=== PATIENT | female | born 2000 | race Caucasian/White ===

== ENCOUNTER 2021-02-02 01:00 | Emergency (ER) | payer BC, OTHER ==
[~2021-02-02] VITALS: Ht 168.9 cm; Wt 66.7 kg
[2021-02-02] MEDS ORDERED: METOCLOPRAMIDE HCL 10 MG/2 ML VIAL. IVP ONE (01:15)
[2021-02-02] MEDS ORDERED: IV NORMAL SALINE 1,000ML 1,000 ML IV ONE (01:15)
[2021-02-02 01:31] LABS: BASO # 0.1 x10^3/uL (0.0-0.2); BASO % 1 % (0-3); EOS # 0.2 x10^3/uL (0.0-0.7); EOS % 2 % (0-3); HEMATOCRIT 38.4 % (36.0-47.0); HEMOGLOBIN 13.1 g/dL (12.0-15.5); LYMPH # 4.8 x10^3/uL (1.0-4.8); LYMPH % 45 % (24-48); MEAN CORPUSCULAR HEMOGLOBIN 30 pg (25-35); MEAN CORPUSCULAR HGB CONC 34 g/dL (31-37); MEAN CORPUSCULAR VOLUME 87 fL (79-100); MONO % 9 % (0-9); NEUT # 4.8 x10^3uL (1.8-7.7); NEUT % 44 % (31-73); PLATELET COUNT 371 x10^3/uL (140-400); RED BLOOD COUNT 4.39 x10^6/uL (3.50-5.40); RED CELL DISTRIBUTION WIDTH 12.5 % (11.5-14.5); WHITE BLOOD COUNT 10.8 x10^3/uL (4.0-11.0)
[2021-02-02 01:40] LABS: BACTERIA,URINE 0 /HPF (0-FEW); BILIRUBIN,URINE NEG (NEG); CLARITY,URINE CLEAR; COLOR,URINE YELLOW; GLUCOSE,URINE NEG (NEG); NITRITE,URINE NEG (NEG); RBC,URINE >40 /HPF (0-2); SQUAMOUS EPITHELIAL CELL,UR OCC /LPF; UROBILINOGEN,URINE 0.2 mg/dL (0.2 mg/dL); WBC,URINE OCC /HPF (0-4)
[2021-02-02 01:41] LABS: CALCIUM 8.3 mg/dL (8.5-10.1); CREATININE 1.2 mg/dL (0.6-1.0); GFR 56.2; POTASSIUM 3.3 mmol/L (3.5-5.1)
[2021-02-02 01:47] LABS: ALBUMIN 3.6 g/dL (3.4-5.0); TOTAL BILIRUBIN 0.4 mg/dL (0.2-1.0); TOTAL PROTEIN 7.3 g/dL (6.4-8.2)
--- NOTE | 2021-02-02 02:07 | PHYS DOC ---
Past History Past Medical History: Kidney Stones Past Surgical History: No Surgical History Smoking: Non-smoker Alcohol Use: None Drug Use: None General Adult EDM: Chief Complaint: ABDOMINAL PAIN HPI: HPI: 20-year-old female with past medical history of kidney stones presents with sudden right flank pain with radiation to abdomen that awoke her from sleep just prior to arrival. Reports some associated nausea. Denies hematuria or dysuria. Denies . Denies trauma. Denies rash. Review of Systems: Review of Systems: Constitutional: Denies fever or chills; reports generalized malaise Eyes: Denies redness or eye pain HENT: Denies nasal congestion or sore throat Respiratory: Denies cough or shortness of breath Cardiovascular: Denies chest pain or palpitations GI: Reports right sided abdominal pain, nausea, and vomiting : Denies dysuria or hematuria Musculoskeletal: Reports right flank/back pain; denies joint pain Integument: Denies rash or skin lesions Neurologic: Denies headache, focal weakness or sensory changes Complete systems were reviewed and found to be within normal limits, except as documented in this note. Current Medications: Current Meds: Current Medications Medications (Trade) Dose Ordered Sig/Topher Start Time Stop Time Status Last Admin Dose Admin Fentanyl Citrate (Fentanyl 2ml Vial) 50 mcg 1X ONCE 02/02/21 01:15 02/02/21 01:16 DC 02/02/21 01:41 50 MCG Metoclopramide HCl (Reglan Vial) 10 mg 1X ONCE 02/02/21 01:15 02/02/21 01:16 DC 02/02/21 01:42 10 MG Sodium Chloride 1,000 ml @ 1,000 mls/hr 1X ONCE 02/02/21 01:15 02/02/21 02:14 02/02/21 01:40 1,000 MLS/HR Allergies: Allergies: Allergies Coded Allergies Type Severity Reaction Last Updated Verified No Known Drug Allergies 02/02/21 No Physical Exam: PE: Constitutional: Well developed, well nourished, no acute distress, non-toxic appearance HENT: Normocephalic, atraumatic Eyes: Conjunctiva normal, no discharge Neck: Normal range of motion, supple Lungs & Thorax: No respiratory distress, equal chest rise and fall Abdomen: Soft, no tenderness, no guarding/rebound tenderness/distention Skin: Warm, dry, no erythema, no rash Back: No tenderness, right CVA tenderness Extremities: No tenderness, ROM intact, no edema Neurologic: Alert and oriented X 3, no focal deficits noted Psychologic: Affect normal, judgment normal Current Patient Data: Labs: Laboratory Tests Test 02/02/21 01:05 02/02/21 01:15 02/02/21 01:27 Urine Collection Type Unknown Urine Color Yellow Urine Clarity Clear Urine pH 6.5 Urine Specific [place] 1.025 Urine Protein Neg (NEG-TRACE) Urine Glucose (UA) Neg mg/dL (NEG) Urine Ketones (Stick) Neg mg/dL (NEG) Urine Blood Large (NEG) Urine Nitrite Neg (NEG) Urine Bilirubin Neg (NEG) Urine Urobilinogen Dipstick 0.2 mg/dL (0.2 mg/dL) Urine Leukocyte Esterase Neg (NEG) Urine RBC >40 /HPF (0-2) Urine WBC Occ /HPF (0-4) Urine Squamous Epithelial Cells Occ /LPF Urine Bacteria 0 /HPF (0-FEW) White Blood Count 10.8 x10^3/uL (4.0-11.0) Red Blood Count 4.39 x10^6/uL (3.50-5.40) Hemoglobin 13.1 g/dL (12.0-15.5) Hematocrit 38.4 % (36.0-47.0) Mean Corpuscular Volume 87 fL (79-100) Mean Corpuscular Hemoglobin 30 pg (25-35) Mean Corpuscular Hemoglobin Concent 34 g/dL (31-37) Red Cell Distribution Width 12.5 % (11.5-14.5) Platelet Count 371 x10^3/uL (140-400) Neutrophils (%) (Auto) 44 % (31-73) Lymphocytes (%) (Auto) 45 % (24-48) Monocytes (%) (Auto) 9 % (0-9) Eosinophils (%) (Auto) 2 % (0-3) Basophils (%) (Auto) 1 % (0-3) Neutrophils # (Auto) 4.8 x10^3uL (1.8-7.7) Lymphocytes # (Auto) 4.8 x10^3/uL (1.0-4.8) Monocytes # (Auto) 1.0 x10^3/uL (0.0-1.1) Eosinophils # (Auto) 0.2 x10^3/uL (0.0-0.7) Basophils # (Auto) 0.1 x10^3/uL (0.0-0.2) Sodium Level 142 mmol/L (136-145) Potassium Level 3.3 mmol/L (3.5-5.1) L Chloride Level 105 mmol/L (98-107) Carbon Dioxide Level 26 mmol/L (21-32) Anion Gap 11 (6-14) Blood Urea Nitrogen 15 mg/dL (7-20) Creatinine 1.2 mg/dL (0.6-1.0) H Estimated GFR (Cockcroft-Gault) 56.2 BUN/Creatinine Ratio 13 (6-20) Glucose Level 106 mg/dL (70-99) H Calcium Level 8.3 mg/dL (8.5-10.1) L Magnesium Level 2.0 mg/dL (1.8-2.4) Total Bilirubin 0.4 mg/dL (0.2-1.0) Aspartate Amino Transferase (AST) 15 U/L (15-37) Alanine Aminotransferase (ALT) 20 U/L (14-59) Alkaline Phosphatase 63 U/L (46-116) Total Protein 7.3 g/dL (6.4-8.2) Albumin 3.6 g/dL (3.4-5.0) Albumin/Globulin Ratio 1.0 (1.0-1.7) Lipase 185 U/L (73-393) POC Urine HCG, Qualitative hcg negative (Negative) Vital Signs: Vital Signs Date Time Temp Pulse Resp B/P (MAP) Pulse Ox O2 Delivery O2 Flow Rate FiO2 02/02/21 01:43 56 18 108/61 (77) 96 Room Air EKG: EKG: [] Radiology/Procedures: Radiology/Procedures: PROCEDURE: CT ABDOMEN PELVIS WO CONTRAST CT abdomen and pelvis without contrast: Reason for examination: Right flank pain. Helical images were obtained through the abdomen and pelvis with no intravenous or oral contrast administered. Reconstruction was planned. Exposure: One or more of the following individualized dose reduction techniques were utilized for this examination: 1. Automated exposure control 2. Adjustment of the mA and/or kV according to patient size 3. Use of iterative reconstruction technique. The lung bases are clear. The heart size is normal with no pericardial effusion. No abnormality seen at the liver, spleen, adrenal glands, pancreas or gallbladder. The abdominal aorta and inferior vena cava show no abnormalities. The colon shows no diverticulosis, diverticulitis or colitis. No abnormality se en at the appendix. The small intestinal tract shows no abnormal dilatation, wall thickening or obstruction. No abnormality seen at the stomach or duodenum. The kidneys bilaterally show presence of multiple small nonobstructing calculi. The right kidney however shows moderate hydronephrosis which appears be due to a 4 mm calculus at the distal right ureter approximately 1 cm above the ureterovesical junction. The bladder is not distended. No abnormality seen at the uterus. Small follicles are seen in the right ovary. There does appear to be a small amount of free fluid in the right pelvic cul-de-sac. This could be physiologic. No acute bony abnormality is seen. IMPRESSION: 4 mm calculus located in the distal right ureter approximately 1 cm above the ureterovesical junction with moderate hydronephrosis. Multiple additional nonobstructing calculi in the kidneys bilaterally. Small follicles in the right ovary. Small amount of free fluid in the right pelvic cul-de-sac which may be physiologic. Electronically signed by: Lakshmi Roman MD (02/02/2021 2:32 AM) [facility] Heart Score: C/O Chest Pain: N/A Course & Med Decision Making: Course & Med Decision Making Pertinent Labs and Imaging studies reviewed. (See chart for details) Patient presents with sudden right-sided flank pain with associated nausea. History of prior kidney stones. Concern given HPI and physical exam of recurrence of kidney stone. Symptomatic treatment provided. IV fluid hydration given. Labs obtained and posted to chart. UA with significant microscopic hematuria. Hypokalemia noted and addressed. CT abdomen/pelvis with findings consistent for obstructing ureteral calculi near UVJ measuring 4mm. Flomax provided. Patient stable for discharge with outpatient follow-up with PCP/urologist. Discussed findings and plan with patient and friend, who acknowledge understanding and agreement. Missy Disclaimer: Missy Disclaimer: This electronic medical record was generated, in whole or in part, using a voice recognition dictation system. Departure Departure: Impression: Primary Impression: Ureteral calculus, right Additional Impression: Hypokalemia Disposition: HOME / SELF CARE / HOMELESS Condition: STABLE Referrals: PCP,GIANCARLO (PCP) Patient Instructions: Diet for Kidney Stones, Hypokalemia, Kidney Stones, [id number], Potassium Content of Foods Scripts Tamsulosin Hcl (FLOMAX) 0.4 Mg Cap.er.24h 1 CAP PO DAILY for Kidney stone, #7 CAP Prov: PORSCHE MAHONEY DO 02/02/21 Hydrocodone Bit/Acetaminophen (HYDROCODONE-APAP 5-325 ) 1 Each Tablet 0.5-1 TAB PO PRN Q6HRS PRN for PAIN, #14 TAB 0 Refills Prov: PORSCHE MAHONEY DO 02/02/21 Ondansetron (ONDANSETRON ODT) 4 Mg Tab.rapdis 1 TAB PO PRN Q6-8HRS PRN for NAUSEA, #16 TAB Prov: PORSCHE MAHONEY DO 02/02/21 PORSCHE MAHONEY DO Feb 02, 2021 02:07
--- NOTE | 2021-02-02 02:35 | RAD ---
CT abdomen and pelvis without contrast: Reason for examination: Right flank pain. Helical images were obtained through the abdomen and pelvis with no intravenous or oral contrast admi nistered. Reconstruction was planned. Exposure: One or more of the following individualized dose reduction techniques were utilized for thi s examination: 1. Automated exposure control 2. Adjustment of the mA and/or kV according to patient size 3. Use of iterative reconstruction technique. The lung bases are clear. The heart size is normal with no pericardial effusion. No abnormality seen at the liver, spleen, adrenal glands, pancreas or gallbladder. The abdominal aort a and inferior vena cava show no abnormalities. The colon shows no diverticulosis, diverticulitis or colitis. No abnormality seen at the appendix. The small intestinal tract shows no abnormal dilatation , wall thickening or obstruction. No abnormality seen at the stomach or duodenum. The kidneys bilater ally show presence of multiple small nonobstructing calculi. The right kidney however shows moderate hydronephrosis which appears be due to a 4 mm calculus at the distal right ureter approximately 1 cm above the ureterovesical junction. The bladder is not distended. No abnormality seen at the uterus. Small follicles are seen in the righ t ovary. There does appear to be a small amount of free fluid in the right pelvic cul-de-sac. This co uld be physiologic. No acute bony abnormality is seen. IMPRESSION: 4 mm calculus located in the distal right ureter approximately 1 cm above the ureterovesical junction with moderate hydronephrosis. Multiple additional nonobstructing calculi in the kidneys bilaterally. Small follicles in the right ovary. Small amount of free fluid in the right pelvic cul-de-sac which may be physiologic. Electronically signed by: Lakshmi Roman MD (02/02/2021 2:32 AM) [facility]
[2021-02-02] MEDS ORDERED: TAMSULOSIN 0.4 MG CAP.ER.24H. PO ONE (03:00)
[2021-02-02] MEDS ORDERED: POTASSIUM CHLORIDE 10 MEQ TABLET.ER. PO ONE (03:00)
[2021-02-02 03:15] VITALS: BP 122/88
[2021-02-02] MEDS ORDERED: TAMS0.4C97 PO (03:16)
[2021-02-02] MEDS ORDERED: ONDA4TAB12 PO (03:16)
[2021-02-02] MEDS ORDERED: HYDR-2155 PO (03:16)
== END 2021-02-02 03:21 | disposition home or self-care (01) ==
LOC: ER 01:00
DX: N13.2 Hydronephrosis with renal and ureteral calculous obstruction (principal); E87.6 Hypokalemia; Z87.442 Personal history of urinary calculi
CPT/HCPCS: 36415; 74176; 80053; 81001; 81025; 83690; 83735; 85025; 96361; 96374; 96375; 99284; J2765; J3010; J7030